=== PATIENT | female | born 1955 | race Caucasian/White ===

== ENCOUNTER 2023-08-13 09:40 | Emergency (ER) | payer MEDICARE, OTHER ==
[~2023-08-13] VITALS: Ht 162.6 cm; Wt 75.0 kg
[~2023-08-13 09:40] MED LIST: BENA-8 PO
[2023-08-13 09:46] VITALS: O2SAT 95
[2023-08-13 11:12] LABS: BASOPHILS % 0.6 % (0.0-2.0); EOSINOPHILS % 1.1 % (0.0-5.0); HEMATOCRIT. 37.3 % (36.0-48.0); HEMOGLOBIN. 12.4 g/dL (12.0-16.0); MEAN CORPUSCULAR HEMOGLOBIN 29.2 pg (28.0-32.0); MEAN CORPUSCULAR HGB CONC 33.3 g/dL (31.0-37.0); MEAN CORPUSCULAR VOLUME 87.8 fL (81.0-99.0); MEAN PLATELET VOLUME 8.5 fl (7.4-10.4); MONOCYTES % 8.3 % (2.0-8.0); PLATELET 239 x1000/uL (130-400); RED BLOOD CELL COUNT 4.25 mill/uL (4.2-5.4); RED CELL DISTRIBUTION WIDTH 14.2 % (11.6-14.6)
[2023-08-13 11:17] LABS: CLARITY URINE CLEAR (CLEAR); COLOR URINE YELLOW (YELLOW); GLUCOSE URINE NEGATIVE (NEGATIVE); KETONES URINE NEGATIVE (NEGATIVE); LEUKOCYTE ESTERASE URINE NEGATIVE (NEGATIVE); NITRITE URINE NEGATIVE (NEGATIVE); OCCULT BLOOD URINE NEGATIVE (NEGATIVE); PROTEIN URINE NEGATIVE (NEGATIVE); SPECIFIC GRAVITY URINE 1.016 (1.005-1.030)
[2023-08-13 11:24] LABS: CHLORIDE 105 mEq/L (98-107); PARTIAL THROMBOPLASTIN TIME 25.9 sec (23.4-31.0); POTASSIUM 3.7 mEq/L (3.5-5.1); PROTHROMBIN TIME 10.7 sec (9.6-11.0); SODIUM 137 mEq/L (136-145)
[2023-08-13 11:25] LABS: CARBON DIOXIDE 23 mEq/L (21-32)
[2023-08-13 11:30] LABS: CREATININE 0.7 mg/dL (0.6-1.0); GLUCOSE 133 mg/dL (70-105); UREA NITROGEN BLOOD 8 mg/dL (9-23)
[2023-08-13 11:31] LABS: TROPONIN I HIGH SENSITIVITY < 4 ng/L (3.0-34)
[2023-08-13] MEDS: DIPHENHYDRAMINE 50MG/ML VIAL IV ONE (12:58)
[2023-08-13] MEDS: ACETAMINOPHEN 325MG TABLET PO ONE (12:59)
[2023-08-13] MEDS: PROCHLORPERAZINE 10MG/2ML VIAL IV ONE (12:59)
[2023-08-13] MEDS: KETOROLAC 30MG/ML VIAL IV ONE (13:53)
[2023-08-13 14:41] VITALS: BP 128/72; PULSE 72; RESP 22; TEMP 97
== END 2023-08-13 14:43 | disposition home or self-care (01) ==
LOC: ER 09:40
DX: M26.622 Arthralgia of left temporomandibular joint (principal); R51.9 Headache, unspecified; E11.9 Type 2 diabetes mellitus without complications; E78.00 Pure hypercholesterolemia, unspecified; I10 Essential (primary) hypertension
CPT/HCPCS: 99285; 96374; 70450; 96375; 71045; 80048; 81003; 83880; 85025; 85610; 85730; 84484; 36415; 93005; J1200; J1885; J0780